=== PATIENT | female | born 1995 | race African-American/Black ===

== ENCOUNTER → 2019-04-27 | Outpatient (CLI) | payer OTHER ==
--- NOTE | 2019-04-27 15:42 | RADIOLOGY REPORT (SQ) ---
EXAM DESCRIPTION: U/S RETROPERITON (RENAL/AORTA) COMPLETED DATE/TIME: 04/27/2019 3:08 pm REASON FOR STUDY: ESSENTIAL HTN I10 ESSENTIAL (PRIMARY) HYPERTENSION COMPARISON: None. TECHNIQUE: Dynamic and static grayscale images acquired of the kidneys and bladder and recorded on P ACS. Additional selected color Doppler and spectral images recorded. LIMITATIONS: None. FINDINGS: RIGHT KIDNEY: Normal size, 12 cm. Normal echogenicity. No solid or suspicious masses. N o hydronephrosis. No calcifications. LEFT KIDNEY: Normal size, 11.1 cm. Normal echogenicity. No solid or suspicious masses. No hydronephr osis. No calcifications. BLADDER: No masses. Bilateral ureteral jets are seen. OTHER FINDINGS: No other significant finding. IMPRESSION: NORMAL RENAL AND BLADDER ULTRASOUND. TECHNICAL DOCUMENTATION: JOB ID: [id number] [employer]- All Rights Reserved Reading location - IP/workstation name: [email or web address]
== END ==
LOC: RAD 14:23
PROVIDERS: ATTEND Internal Medicine
DX: I10 Essential (primary) hypertension (principal)
CPT/HCPCS: 76770

== ENCOUNTER 2019-07-20 06:42 | Day surgery (SDC) | payer OTHER ==
[2019-07-15 09:13] LABS: HEMATOCRIT 36.5 % (36.0-47.0); HEMOGLOBIN 12.1 g/dL (12.0-15.5); MEAN CORPUSCULAR HEMOGLOBIN 25.9 pg (27.0-33.4); MEAN CORPUSCULAR HGB CONC 33.2 g/dL (32.0-36.0); MEAN CORPUSCULAR VOLUME 78 fl (80-97); PLATELET COUNT 227 10^3/uL (150-450); RED BLOOD COUNT 4.68 10^6/uL (3.72-5.28); RED CELL DISTRIBUTION WIDTH 15.7 % (11.5-14.0)
[~2019-07-20 06:42] MED LIST: CEFAZOLIN 1 GM/D5W RTU 2 GM/100 ML RTUPB IV ONE; LACTATED RINGERS 1000 ML IV PRN; LIDOCAINE 0.5% INJ-PF (5 MG/ML) 50 ML SDV SUBCUT PRN
[2019-07-20] MEDS ORDERED: TRIAMCINOLONE ACETONIDE INJ 40 MG/1 ML VIAL ONE ×2 (08:22→08:38)
[2019-07-20] MEDS ORDERED: COCAINE HCL 4% TOPICAL SOLN 4 ML ONE (08:23)
[2019-07-20] MEDS ORDERED: OXYMETAZOLINE HCL 0.05% NASAL SPRAY 15 ML BOTTLE ONE (08:23)
[2019-07-20] MEDS ORDERED: ONDANSETRON HCL INJ/PF 4 MG/2 ML SDV ONE ×2 (08:24→11:09)
[2019-07-20] MEDS ORDERED: PROPOFOL INJ 200 MG/20 ML VIAL IV ONE (08:24)
[2019-07-20] MEDS ORDERED: DEXAMETHASONE SOD PHOSPHATE INJ 4 MG/1 ML VIAL ONE (08:24)
[2019-07-20] MEDS ORDERED: MIDAZOLAM 2 MG/2 ML INJ ONE (08:24)
[2019-07-20] MEDS ORDERED: FENTANYL CITRATE INJ/PF 100 MCG/2 ML AMPUL ONE ×2 (08:24→10:28)
[2019-07-20] MEDS ORDERED: DEXAMETHASONE SOD PHOS INJ 10 MG/1 ML VIAL ONE (09:54)
--- NOTE | 2019-07-20 10:01 | Operative Report ---
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 Presents today for a MicroDirect laryngoscopy with excision of bilateral true vocal cord granulomas. Preoperative Diagnosis: 1. True vocal cord granuloma, right side 2. True vocal cord granuloma, left side Postoperative Diagnosis: Same as above Procedure: 1. Micro Direct Laryngoscopy 2. Excision true vocal cord granuloma, right side 3. Excision true vocal cord granuloma, left side. Surgeon: Joe Zheng MD, FACS, [facility] Anesethia: MARIA ISABEL Description of the procedure: After receiving informed consent, the patient was brought to the operating room and placed supine on the operating room table. After successful induction and intubation by anesthesia, the operating room table was turned 90. A head rape was placed. The patient was placed in a sniffing position. A mouthguard was placed to protect the dentition. An operating laryngoscope was placed atraumatically into the laryngeal inlet. The laryngoscope was then placed into suspension. The microscope was brought into the field and the larynx was visualized. Granulomas were identified involving the vocal process of both true vocal cords. The larger granuloma was on the left side. Cottonoids soaked in 4% cocaine were placed into the laryngeal inlet to cover the vocal cords, prior to initiation of the procedure. The cottonoid was removed. Using a curved graspers to the left and scissors to the right the left true vocal cord granuloma was excised. Hemostasis was obtained using a cottonoid soaked in 4% cocaine. Attention was directed to the right true vocal cord where in a similar fashion using graspers to the left and microscissors to the right, the right true vocal cord granuloma was excised. Hemostasis was obtained using a cottonoid soaked in 4% cocaine. Once hemostasis was obtained. The cottonoid was removed and a cottonoid soaked in Kenalog 40 was placed over both excision sites for 5 minutes. The cottonoid was then removed. The patient was taken out of suspension and the laryngoscope removed. The patient was then given back to anesthesia who successfully extubated the patient without any complications. Estimated blood loss: Minimal Fluids: 500 mL's The patient tolerated the procedure well without any complications. The patient was then transported to the post anesthesia care unit in stable condition with spontaneous respirations.
[2019-07-20] MEDS ORDERED: ONDANSETRON HCL INJ/PF 4 MG/2 ML SDV IV PRN (10:12)
[2019-07-20] MEDS ORDERED: MORPHINE SULFATE 10 MG/ML INJ IV PRN (10:12)
[2019-07-20] MEDS ORDERED: PROMETHAZINE HCL INJ 25 MG/1 ML VIAL IV PRN ×2 (10:12)
[2019-07-20] MEDS ORDERED: FENTANYL CITRATE INJ/PF 100 MCG/2 ML AMPUL IV PRN ×3 (10:12)
[2019-07-20] MEDS ORDERED: OXYCODONE-ACETAMINOPHEN 5-325 MG TABLET PO PRN ×2 (10:12)
[2019-07-20] MEDS ORDERED: DIPHENHYDRAMINE HCL 50 MG/ML VIAL IV PRN (10:12)
[2019-07-20] MEDS ORDERED: MEPERIDINE HCL/PF INJ 25 MG/1 ML DISP.SYRIN IV PRN (10:12)
[2019-07-20] MEDS ORDERED: HYDROCODONE/ACETAMINOPHEN 5-325 MG TABLET PO PRN (10:33)
[2019-07-20] MEDS ORDERED: HYDROCODONE/ACETAMINOPHEN 5-325 MG TABLET ONE (11:09)
[2019-07-20 12:19] VITALS: BP 128/71
[2019-07-20] MEDS ORDERED: SUCCINYLCHOLINE CHLORIDE INJ 200 MG/10 ML VIAL ONE (12:22)
== END 2019-07-20 11:55 | disposition home or self-care (01) ==
LOC: OROUT 06:42
PROVIDERS: ATTEND Otolaryngology
DX: J38.3 Other diseases of vocal cords (principal); K21.9 Gastro-esophageal reflux disease without esophagitis
CPT/HCPCS: 36415; 85027; 81025; 88342 ×2; 88305 ×2; 88312 ×2; 00320; 31540; J2250; J0690; J3490 ×2; J1100 ×2; J3010; J2405; J3301; J2704; 320; J0330